=== PATIENT | male | born 1965 | race Caucasian/White ===

== ENCOUNTER 2023-02-09 19:01 | Emergency (ER) | payer SELFPAY ==
[~2023-02-09] VITALS: Ht 172.7 cm; Wt 113.8 kg
[2023-02-09] MEDS ORDERED: NS 1,000 ML IV ONE (19:20)
[2023-02-09] MEDS ORDERED: hydrALAZINE 20MG/ML 1ML VIAL IV STA (19:47)
[2023-02-09] MEDS: METOPROLOL 5 MG/5 ML VIAL IV SCH ×3 (20:02→20:20)
[2023-02-09 20:06] LABS: BASO # 0.1 10^3/uL (0.0-0.2); BASO % 0.6 % (0.0-1.0); EOS # 0.2 10^3/uL (0.0-0.5); EOS % 1.5 % (0.0-3.0); HEMATOCRIT 49.8 % (42.0-52.0); HEMOGLOBIN 16.4 g/dl (13.5-17.5); LYMPH # 2.3 10^3/uL (1.5-5.0); LYMPH % 18.8 % (24.0-44.0); MEAN CORPUSCULAR HEMOGLOBIN 29.2 pg (27.0-33.0); MEAN CORPUSCULAR HGB CONC 32.9 g/dl (32.0-36.5); MEAN CORPUSCULAR VOLUME 88.8 fl (80.0-96.0); MONO % 8.3 % (2.0-8.0); NEUTROPHILS # 8.7 10^3/uL (1.5-8.5); NEUTROPHILS % 70.5 % (36.0-66.0); PLATELET COUNT, AUTOMATED 275 10^3/uL (150-450); RED BLOOD COUNT 5.61 10^6/uL (4.30-6.10); WHITE BLOOD COUNT 12.4 10^3/uL (4.0-10.0)
[2023-02-09 20:31] LABS: ALBUMIN 4.2 G/DL (3.2-5.2); ALKALINE PHOSPHATASE 81 U/L (46-116); ALT/SGPT 21 U/L (7.0-40); AST/SGOT < 8 U/L (<34); BILIRUBIN,TOTAL 0.5 MG/DL (0.3-1.2); BLOOD UREA NITROGEN 10 MG/DL (9-23); CALCIUM LEVEL 8.9 MG/DL (8.5-10.1); CARBON DIOXIDE LEVEL 28 MMOL/L (20-31); CHLORIDE LEVEL 106 MMOL/L (98-107); CREATININE FOR GFR 1.06 MG/DL (0.70-1.30); GLOMERULAR FILTRATION RATE > 60.0 (>56); GLUCOSE, FASTING 94 MG/DL (60-100); MAGNESIUM LEVEL 2.2 MG/DL (1.8-2.4); POTASSIUM SERUM 3.6 MMOL/L (3.5-5.1); SODIUM LEVEL 140 MMOL/L (136-145); TOTAL PROTEIN 6.9 G/DL (5.7-8.2)
[2023-02-09] MEDS ORDERED: VALSARTAN 80 MG TAB (DIOVAN) PO ONE (20:45)
[2023-02-09] MEDS ORDERED: CARVedilol 12.5 MG TAB PO ONE (20:45)
[2023-02-09 21:16] VITALS: BP 218/111
[2023-02-09 21:51] LABS: CPK CREATINE PHOSPHOKINASE 80 U/L (46-171); MB/CK RELATIVE INDEX 1.25 (< OR =4)
[2023-02-09 23:24] VITALS: TEMP 98.5
[2023-02-09 23:43] LABS: CK-MB VALUE MASS < 1.0 NG/ML (<3.6)
[2023-02-09 23:44] LABS: CPK CREATINE PHOSPHOKINASE 62 U/L (46-171); MB/CK RELATIVE INDEX 1.61 (< OR =4)
[2023-02-10] MEDS ORDERED: CARV12.5 PO (00:04)
[2023-02-10] MEDS ORDERED: VALS1TAB67 PO (00:04)
[2023-02-10] MEDS ORDERED: AMLO10TA PO (00:04)
[2023-02-10] MEDS ORDERED: ASPI81TA26 PO (00:05)
[2023-02-10] MEDS ORDERED: DOXY-443 PO (00:33)
[2023-02-10] MEDS ORDERED: DOXYCYCLINE HYCLATE 100MG TABLET PO ONE (00:35)
[2023-02-10 00:39] VITALS: BP 166/82
[2023-02-10 00:54] VITALS: O2SAT 98
[2023-02-10 01:06] LABS: GC DNA AMPLIFICATION NEGATIVE (NEGATIVE)
== END 2023-02-10 01:17 | disposition home or self-care (01) ==
LOC: M ED 19:01
DX: I16.0 Hypertensive urgency (principal); R33.9 Retention of urine, unspecified; N34.1 Nonspecific urethritis; I48.91 Unspecified atrial fibrillation; F17.200 Nicotine dependence, unspecified, uncomplicated; Z79.899 Other long term (current) drug therapy; Z79.82 Long term (current) use of aspirin
CPT/HCPCS: 36415; 71045; 80053; 81001; 82550; 82553; 83735; 84484; 85025; 87086; 87661; 87810; 87850; 93005; 96374; 96375; 99285; J0360